=== PATIENT | female | born 1985 | race Caucasian/White ===

== ENCOUNTER 2018-01-01 07:19 | Day surgery (SDC) | payer OTHER ==
[~2018-01-01] VITALS: Ht 162.6 cm; Wt 77.1 kg
[~2018-01-01 07:19] MED LIST: CELEXA20 MG PO; MOTRIN600 MG PO; SKELAXIN800 MG PO
[2018-01-01 07:54] VITALS: BP 117/63
[2018-01-01 10:52] VITALS: BP 119/64
== END 2018-01-01 11:20 | disposition home or self-care (01) ==
LOC: SDC 07:19
DX: D06.9 Carcinoma in situ of cervix, unspecified (principal); Z30.433 Encounter for removal and reinsertion of intrauterine contraceptive device; E66.9 Obesity, unspecified; Z68.29 Body mass index [BMI] 29.0-29.9, adult; J45.909 Unspecified asthma, uncomplicated; F41.8 Other specified anxiety disorders; F17.210 Nicotine dependence, cigarettes, uncomplicated
CPT/HCPCS: 88307; J0690; J1100; J1885; J2250; J3010